=== PATIENT | female | born 1995 | race Caucasian/White ===

== ENCOUNTER 2018-08-27 06:10 | Emergency (ER) | payer OTHER ==
[~2018-08-27] VITALS: Ht 157.5 cm; Wt 79.4 kg
[2018-08-27 06:19] VITALS: BP 133/67
--- NOTE | 2018-08-27 06:23 | NUR ---
PT TAKEN TO BED 7
--- NOTE | 2018-08-27 06:25 | NUR ---
PATIENT PRESENTS ER WITH C/O PAIN TO THE PELVIC, VAGINAL BLEEDING X 3 HOURS. PT STATES SHE STARTED WITH CRAMPING AND THEN SAW BLOOD SHE WENT TO THE RESTROOM. PT STATES SHE HAS BEEN PASSING BLOOD CLOTS. PT STATED THAT SHE IS APPROX. 8-9 WEEKS . PT IS CURRENTLY NOT UNDER OBGYN CARE. SKIN IS PINK/WARM/DRY; AAOX4 WITH EVEN AND STEADY GAIT; PATIENT STATES PAIN OF 10/10 AT THIS TIME; VSS; PATIENT POSITIONED FOR COMFORT; HOB ELEVATED; BEDRAILS UP X2; BED DOWN. ER MD MADE AWARE OF PT STATUS.
[2018-08-27] MEDS ORDERED: ACETAMINOPHEN 325 MG TAB PO ONE (06:45)
--- NOTE | 2018-08-27 07:10 | NUR ---
DR. KRISHNA AT BEDSIDE
--- NOTE | 2018-08-27 07:16 | NUR ---
GAVE REPORT TO DIPAK TAVAREZ, PT VSS.
--- NOTE | 2018-08-27 07:24 | NUR ---
US AT BEDSIDE.
[2018-08-27 08:07] LABS: BASOPHILS % (AUTO) 0.3 % (0.0-2.0); EOSINOPHILS # (AUTO) 0.1 K/uL (0-0.4); HEMATOCRIT 35.8 % (36-48); HEMOGLOBIN 11.5 g/dL (12.0-16.0); LYMPHOCYTES # (AUTO) 1.6 K/uL (2.5-16.5); LYMPHOCYTES % (AUTO) 13.3 % (20.5-51.1); MEAN CORPUSCULAR HEMOGLOBIN 27 pg (27-31); MEAN CORPUSCULAR HGB CONC 32 g/dL (33-37); MEAN CORPUSCULAR VOLUME 85.2 fL (80-94); MONOCYTES # (AUTO) 0.9 K/uL (0.8-1.0); MONOCYTES % (AUTO) 7.5 % (1.7-9.3); NEUTROPHILS # (AUTO) 9.7 K/uL (1.8-7.7); NEUTROPHILS % (AUTO) 77.9 % (42.2-75.2); PLATELET COUNT (AUTO) 295 K/uL (140-450); RED CELL DISTRIBUTION WIDTH 15.4 % (11.6-13.7); WHITE BLOOD COUNT (AUTO) 12.4 K/uL (4.8-10.8)
--- NOTE | 2018-08-27 08:25 | NUR ---
PT RECIEVED 650 MG OF TYLENOL PO BUT STILL C/O PAIN, DR KRISHNA NOTIFED, NO ADDITIONAL PAIN MEDS TO BE GIVEN AT THIS TIME PER MD, AWAITING US RESULTS.
[2018-08-27] MEDS ORDERED: KETOROLAC 30 MG/ML VIAL IVP ONE (08:35)
[2018-08-27] MEDS ORDERED: LACTATED RINGERS 1,000 ML IV ONE (08:35)
--- NOTE | 2018-08-27 08:35 | NUR ---
PT REFUSED IV, MEDS CHANGED TO PO BY DR. KRISHNA
[2018-08-27] MEDS ORDERED: HYDROcodone/APAP 5/325 MG 1 TAB TAB PO ONE (08:40)
[2018-08-27] MEDS ORDERED: IBUPROFEN 800 MG TAB PO ONE (08:40)
[2018-08-27] MEDS ORDERED: IBUPROFEN 800 MG TAB ONE (08:48)
[2018-08-27 08:54] VITALS: BP 134/84
[2018-08-27 09:41] LABS: APPEARANCE,URINE CLOUDY (CLEAR); BILIRUBIN,URINE NEGATIVE (NEGATIVE); BLOOD, URINE 3+ (NEGATIVE); COLOR,URINE RED (YELLOW); LEUKOCYTE ESTERASE ,URINE NEGATIVE (NEGATIVE); NITRITE, URINE NEGATIVE (NEGATIVE); UGLUCOSE NEGATIVE (NEGATIVE)
[2018-08-27 09:43] LABS: RBC,URINE 80-100 /HPF (0-5); WBC,URINE 0-5 (RARE) /HPF (0-5)
== END 2018-08-27 08:54 | disposition home or self-care (01) ==
LOC: MED 06:10
DX: O03.9 Complete or unspecified spontaneous abortion without complication (principal)
CPT/HCPCS: 36415; 76801; 76817; 81001; 81025; 84702; 85025; 86900; 86901; 99284; J1885; Q0092